=== PATIENT | male | born 1990 | race American Indian/Alaskan Native ===

== ENCOUNTER 2019-05-06 16:05 | Emergency (ER) | payer SELFPAY ==
--- NOTE | 2019-05-06 19:26 | Emergency Department Report ---
ED General Adult HPI - General Chief complaint: Weakness Stated complaint: RT ARM SWOLLEN Time Seen by Provider: 05/06/19 19:22 Source: patient Mode of arrival: Ambulatory Limitations: No Limitations - History of Present Illness Initial comments: This is a pleasant 27 yo male who presents to the ED with a chief complaint of right arm pain for the past 2 hours. He states he went to the plasma donation center today and there was a difficult time getting his IV. He reports they took the blood but were unable to return the blood after the donation. He reports he felt some pain and swelling in the right arm after the first initial attempt at IV. He states this has since resolved. He reports he felt a brief episode of light headedness after he got home that also resolve. he denies fever, chills, night sweats, weakness, or any other related symptoms Onset/Timin -: Gradual, hour(s) Location: right, upper extremity Radiation: non-radiation Severity scale (0 -10): 5 Quality: aching Consistency: constant, intermittent Improves with: none Worsens with: none Associated Symptoms: denies other symptoms Treatments Prior to Arrival: none - Related Data Previous Rx's Medication Instructions Recorded Last Taken Type Ibuprofen [Motrin 600 MG tab] 600 mg PO Q8H PRN 7 Days #21 tablet 05/06/19 Unknown Rx Allergies Allergy/AdvReac Type Severity Reaction Status Date / Time No Known Allergies Allergy Unverified 05/06/19 16:09 ED Review of Systems ROS: Stated complaint: RT ARM SWOLLEN Other details as noted in HPI Constitutional: denies: chills, fever Eyes: denies: eye pain, eye discharge, vision change ENT: denies: ear pain, throat pain Respiratory: denies: cough, shortness of breath, wheezing Cardiovascular: denies: chest pain, palpitations Endocrine: no symptoms reported Gastrointestinal: denies: abdominal pain, nausea, diarrhea Genitourinary: denies: urgency, dysuria Musculoskeletal: denies: back pain, joint swelling, arthralgia Skin: denies: rash, lesions Neurological: denies: headache, weakness, paresthesias Psychiatric: denies: anxiety, depression Hematological/Lymphatic: denies: easy bleeding, easy bruising ED Past Medical Hx - Past Medical History Previous Medical History?: No - Surgical History Past Surgical History?: No - Social History Smoking Status: Never Smoker Substance Use Type: None - Medications Home Medications: Home Medications Medication Instructions Recorded Confirmed Last Taken Type Ibuprofen [Motrin 600 MG tab] 600 mg PO Q8H PRN 7 Days #21 tablet 05/06/19 Unknown Rx ED Physical Exam - General Limitations: No Limitations General appearance: alert, in no apparent distress - Head Head exam: Present: atraumatic, normocephalic - Eye Eye exam: Present: normal appearance - ENT ENT exam: Present: mucous membranes moist - Neck Neck exam: Present: normal inspection - Respiratory Respiratory exam: Present: normal lung sounds bilaterally. Absent: respiratory distress - Cardiovascular Cardiovascular Exam: Present: regular rate, normal rhythm. Absent: systolic murmur, diastolic murmur, rubs, gallop - GI/Abdominal GI/Abdominal exam: Present: soft, normal bowel sounds - Rectal Rectal exam: Present: deferred - Extremities Exam Extremities exam: Present: normal inspection (no palpable cords, no streaking, no erythema, edema or induration, no crepitus, normal passive and active ROM of elbow without pain. normal radial pulses and distal sensation and cap refill) - Back Exam Back exam: Present: normal inspection - Neurological Exam Neurological exam: Present: alert, oriented X3 - Psychiatric Psychiatric exam: Present: normal affect, normal mood - Skin Skin exam: Present: warm, dry, intact, normal color. Absent: rash ED Course Vital Signs 05/06/19 16:20 Temperature 98.8 F Pulse Rate 70 Respiratory 18 Rate Blood Pressure 133/69 O2 Sat by Pulse 100 Oximetry ED Medical Decision Making - Medical Decision Making patient is nontoxic and in no distress. He had pain after IV at plasma donation center. His arm exam was normal. I suspect he may have or may develop superficial thrombophlebitis and Educated him about warm compresses and NSAIDS for this. I offered to check CBC due to him feeling light headed, however he declined which I think is reasonable. Patient is well-appearing and his dizziness has resolved. Vital signs are normal with no hypertension tachycardia or any other symptoms to suggest symptomatically anemia. He has no history of anemia. I suspect this is more volume depletion recommended increase by mouth fluids. I will recommend work note and an NSAID for his pain and recommended outpatient follow his primary care doctor if his symptoms are to persist. He is told to return the MRSA property changing or worsening symptoms. QUESTIONS were answered and he verbalized understanding of the diagnosis, treatment plan and follow-up instructions. Critical care attestation.: If time is entered above; I have spent that time in minutes in the direct care of this critically ill patient, excluding procedure time. ED Disposition Clinical Impression: Superficial thrombophlebitis of arm Qualifiers: Laterality: right Qualified Code(s): I80.8 - Phlebitis and thrombophlebitis of other sites Disposition: - TO HOME OR SELFCARE Is pt being admited?: No Does the pt Need Aspirin: No Condition: Stable Instructions: Superficial Thrombophlebitis (ED) Prescriptions: Ibuprofen [Motrin 600 MG tab] 600 mg PO Q8H PRN 7 Days #21 tablet PRN Reason: Pain Forms: Work/School Release Form(ED) Time of Disposition: 20:05
[2019-05-06 20:36] VITALS: BP 126/68
== END 2019-05-06 20:36 | disposition home or self-care (01) ==
LOC: ED 16:05
DX: I80.8 Phlebitis and thrombophlebitis of other sites (principal)

== ENCOUNTER 2019-10-28 17:16 | Emergency (ER) | payer SELFPAY ==
[2019-10-28 17:27] VITALS: BP 119/66
--- NOTE | 2019-10-28 18:43 | Emergency Department Report ---
Chief Complaint: Extremity Injury, Lower Stated Complaint: RT FOOT SWOLLEN Time Seen by Provider: 10/28/19 18:31 - HPI History of Present Illness: Patient is a 29-year-old male presents emergency room with complaints of right foot pain and swelling that began several months ago. He states that he is constantly on his feet at work. 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 He states that he has to wear very hard shoes at work and believes that it rubs against a knot could be causing his pain. He denies any fall or injury. He denies any numbness or weakness. He is ambulatory. He denies any past medical history or allergies to medications. Vitals are stable on exam: No bony tenderness to palpation of the bilateral toes, feet, ankles, no obvious edema, no deformity, full range of motion of the bilateral ankles, feet, digits, no erythema, no skin changes, no increased warmth, Achilles tendon is intact bilaterally, neurovascularly intact Patient has had no acute traumatic injury No bony tenderness or deformity to suggest fracture or dislocation No clinical signs of septic joint or gout Advised patient to get orthopedic inserts for his shoes Discussed symptomatic treatment and supportive care Patient will be referred to an orthopedic doctor Medical screening examination performed and there is no threat to life or limb at this time Discussed strict return precautions - Exam Vital Signs: Vital Signs 10/28/19 17:17 Temperature 97.9 F Pulse Rate 84 Respiratory 20 Rate Blood Pressure 119/66 O2 Sat by Pulse 97 Oximetry MSE screening note: Focused history and physical exam performed. ED Disposition for MSE Clinical Impression: Right foot pain Disposition: Z-07 MED SCREENING EXAM-LEFT Is pt being admited?: No Does the pt Need Aspirin: No Condition: Stable Instructions: Arthralgia (ED) Additional Instructions: May alternate Tylenol then ibuprofen every 6-8 hours as needed for discomfort. Elevate the legs, rest, may ice for 15 minutes at a time. May use orthopedic inserts inside the shoes. Follow-up with orthopedic doctor. Follow-up with a primary care doctor. Return to the emergency room for any new or worsening symptoms. Referrals: WESLEY RICHTER MD [Staff Physician] - 3-5 Days [facility] [Provider Group] - 3-5 Days SHAWNA SANDERSON MD [Staff Physician] - 3-5 Days [facility] [Provider Group] - 3-5 Days Forms: Work/School Release Form(ED) Time of Disposition: 18:41 Print Language: STATELESS
== END 2019-10-28 19:10 | disposition left against medical advice (07) ==
LOC: ED 17:16
DX: M79.671 Pain in right foot (principal); M79.89 Other specified soft tissue disorders
CPT/HCPCS: 99282